=== PATIENT | female | born 1945 | race Caucasian/White ===

== ENCOUNTER 2017-06-18 15:33 | Emergency (ER) | payer OTHER ==
[~2017-06-18] VITALS: Ht 170.2 cm; Wt 39.0 kg
[~2017-06-18 15:33] MED LIST: CALCIUM600 M1 PO; CENTRUM SILVER1 EAC4 PO; IRON18 M1 PO
[2017-06-18 16:55] VITALS: BP 128/70
[2017-06-18 16:57] VITALS: BP 128/70
--- NOTE | 2017-06-18 17:42 | Emergency Room Report ---
History of Present Illness General Chief Complaint: Pain Source: Patient Present Illness HPI 72-year-old female, presenting with bilateral lower extremity discoloration for 3 weeks. Patient states that she finished a course of antibiotics for "cellulitis". States that she still continues to have some redness and flakiness of her bilateral legs. Denies any fever chills. Denies any pain. States that she has not yet seen her doctor for this Allergies: Coded Allergies: No Known Allergies (Unverified , 06/18/17) Patient History Past Medical History: see triage record Past Surgical History: none Pertinent Family History: none Reviewed Nursing Documentation: PMH: Agreed, PSxH: Agreed Physical Exam Vital Signs Date Time Temp Pulse Resp B/P (MAP) Pulse Ox O2 Delivery O2 Flow Rate FiO2 06/18/17 15:40 97.9 92 16 128/70 98 Room Air Sp02 EP Interpretation: reviewed, normal General Appearance: normal inspection, well appearing, no apparent distress, alert, GCS 15, non-toxic Head: normocephalic, atraumatic Eyes: bilateral eye normal inspection, bilateral eye PERRL, bilateral eye EOMI ENT: normal ENT inspection, normal pharynx, normal voice, moist mucus membranes Neck: normal inspection, full range of motion, supple Respiratory: normal inspection, lungs clear, normal breath sounds, no respiratory distress, no retraction, no wheezing, speaking full sentences, chest symmetrical Cardiovascular #1: normal inspection, regular rate, rhythm, normal capillary refill Cardiovascular #2: 2+ radial (R), 2+ radial (L) Gastrointestinal: normal inspection, non tender, soft, non-distended, no guarding Musculoskeletal: normal inspection, back normal, normal range of motion, non- tender Neurologic: normal inspection, alert, oriented x3, responsive, motor strength/ tone normal, sensory intact, normal gait, speech normal Psychiatric: normal inspection, judgement/insight normal, memory normal Skin: well hydrated, normal turgor, other - Bilateral lower extremities with chronic, leaking, rash, with scales, mild redness, however appears to be chronic discoloration, nontender and not warm Medical Decision Making Diagnostic Impression: Primary Impression: Chronic wound of extremity ER Course 71-year-old female with chronic rash to bilateral lower extremities DDX: States that she only finished antibiotics to treat a cellulitis, at this time rash appears more to be a chronic flaky rash, minimal redness, patient does not appear septic, looks like it is a chronic rash versus acute cellulitis Patient also has had a recent DVT ultrasound for right lower extremity which was negative Plan: None in the emergency room ER course: Patient has remained stable during ED stay. Disposition: Patient is to be discharged to home. Patient is instructed to follow up with their primary care doctor within 2 days , patient instructed that she may need a fire protection specialist Strict return precautions discussed with patient such as fever, chills, worsening/severe pain, spread of rash, chest pain, SOB, nausea, vomiting, which may indicate severe illness. Patient verbalizes understanding and agrees with plan. Please note that this Emergency Department Report was dictated using [employer] furnaceman technology software, occasionally this can lead to erroneous entry secondary to interpretation by the dictation equipment Last Vital Signs Date Time Temp Pulse Resp B/P (MAP) Pulse Ox O2 Delivery O2 Flow Rate FiO2 06/18/17 16:57 97.9 85 16 128/70 98 Room Air Disposition: HOME, SELF-CARE Condition: Stable Referrals: [facility],REFERRING (PCP) Patient Instructions: Rash, [id number] Additional Instructions: PLEASE FOLLOW UP WITH A MEAT SEAFOOD ASSOCIATE Bull Rose M.D. Jun 18, 2017 17:42
== END 2017-06-18 16:59 | disposition home or self-care (01) ==
LOC: EMR 16:13
DX: S81.802A Unspecified open wound, left lower leg, initial encounter (principal); S81.801A Unspecified open wound, right lower leg, initial encounter; X58.XXXA Exposure to other specified factors, initial encounter; Y93.9 Activity, unspecified; Y92.9 Unspecified place or not applicable; R21 Rash and other nonspecific skin eruption
CPT/HCPCS: 99282

== ENCOUNTER 2018-09-21 16:33 | Emergency (ER) | payer BC, MEDICARE, OTHER ==
[~2018-09-21] VITALS: Ht 157.5 cm; Wt 49.9 kg
[2018-09-21 16:50] VITALS: BP 101/55
--- NOTE | 2018-09-21 17:08 | Emergency Room Report ---
History of Present Illness General Chief Complaint: Pain Source: Patient Present Illness HPI Patient is a 73-year-old female presented after increased right lower extremity pain. Patient reports having pain predominantly to her right foot. Patient had a surgery approximately 1 month ago for skin graft. Patient had prior skin removal as well as grafting to the right lower extremity. She had been noted to have an occlusive dressing on her right lower extremity. Patient presented after increased pain and swelling. Allergies: Coded Allergies: No Known Allergies (Unverified , 06/18/17) Patient History Reviewed Nursing Documentation: PMH: Agreed; PSxH: Agreed Nursing Documentation-PMH Past Medical History: No History, Except For Physical Exam Vital Signs Date Time Temp Pulse Resp B/P (MAP) Pulse Ox O2 Delivery O2 Flow Rate FiO2 09/21/18 16:26 98.2 85 16 101/55 98 General Appearance: alert, GCS 15, cachetic, Chronically Ill ENT: hearing grossly normal Neck: limited range of motion Respiratory: chest non-tender, lungs clear, normal breath sounds Cardiovascular #1: regular rate, rhythm, edema - right lower extremity Gastrointestinal: normal inspection Musculoskeletal: decreased range of motion - right lower extremity, other - kyphosis Neurologic: alert, oriented x3 Skin: other - healing graft to right leg, donor sites from thigh healing Medical Decision Making Diagnostic Impression: Primary Impression: Chronic wound of extremity Additional Impression: Dependent edema ER Course Patient presented for right lower extremity pain and swelling. Differential diagnosis include was not limited to fracture, dislocation, sprain, cellulitis, DVT among others. Patient was noted to have chronic wound to right lower extremity which appears to be Healing well. Patient reports having prior DVT ultrasound which was negative. Patient was noted to have no evidence of infection at this time. Patient was advised to follow-up with her plastic surgeon Dr. Steele. Last Vital Signs Date Time Temp Pulse Resp B/P (MAP) Pulse Ox O2 Delivery O2 Flow Rate FiO2 09/21/18 16:26 98.2 85 16 101/55 98 Status: improved Disposition: HOME, SELF-CARE Condition: Stable Scripts Lidocaine (Lidocaine) 1 Each Adh..patch 5 % TP DAILY, #20 PATCH Prov: Medardo Beavers MD 09/21/18 Medardo Beavers MD Sep 21, 2018 17:08
[2018-09-21] MEDS ORDERED: LIDOCAINE700 M1 TP (17:54)
[2018-09-21] MEDS ORDERED: Acetaminophen 500mg (ES) tab ORAL ONE (18:00)
[2018-09-21 20:20] VITALS: BP 108/54
--- NOTE | 2018-09-22 11:04 | Diagnostic Imaging Report ---
Indication: Right leg pain Technique: Grayscale and duplex images of the right lower extremity veins Comparison: none Findings: Recent duplex images demonstrate no evidence of intraluminal thrombus. Normal phasic Doppler waveforms, demonstrating normal augmentation response and the popliteal vein. No evidence of valvular insufficiency. Normal compressibility of all deep venous structures Impression: Negative for right lower extremity deep venous thrombosis
--- NOTE | 2018-09-22 14:22 | Diagnostic Imaging Report ---
Indication: Foot pain Technique: 3 views right foot Comparison: none Findings: There is slight hammertoe deformity of the second digit. There is suggestion of inferior subluxation of the second proximal interphalangeal joint. The remainder the bony alignment is normal. There are degenerative changes of the first and second metatarsophalangeal joints. No acute fractures. The bones are osteoporotic. No definite osteolytic or osteoblastic lesions. There are vascular calcifications Impression: No definite acute bony trauma No findings to suggest acute osteomyelitis. Note, however, limited sensitivity of plain radiographs for such. Possible subluxation, versus focal hammertoe deformity, of the second proximal interphalangeal joint. Correlate with clinical findings
== END 2018-09-21 20:20 | disposition home or self-care (01) ==
LOC: EDBD 16:33 → EMR 17:00
DX: Z48.89 Encounter for other specified surgical aftercare (principal); R60.0 Localized edema; M79.604 Pain in right leg; M40.209 Unspecified kyphosis, site unspecified
CPT/HCPCS: 93971; 99284